=== PATIENT | male | born 1970 | race Caucasian/White ===

== ENCOUNTER 2019-06-02 18:18 | Emergency (ER) | payer OTHER ==
[2019-06-02] MEDS ORDERED: Diazepam TAB(*) 5 MG PO ONE (20:03)
[2019-06-02] MEDS ORDERED: Ketorolac INJ* 30 MG/ML 1 ML VIAL IM ONE (20:03)
[2019-06-02] MEDS ORDERED: Cyclobenzaprine TAB* 10 MG PO ONE (20:09)
--- NOTE | 2019-06-02 20:09 | ED ---
Back Pain - HPI Summary HPI Summary: Patient complains of left lower back pain after bending over today at work. Patient is ambulatory, describes pain as moderate. Denies urinary retention, bowel incontinence, pain in legs, any other pain, injury or symptoms. Medical history is none. - History of Current Complaint Chief Complaint: EDBackInjuryPain Stated Complaint: BACK INJURY PER PT Time Seen by Provider: 06/02/19 20:01 Hx Obtained From: Patient Onset/Duration: Sudden Onset, Lasting Hours Onset/Duration: Started Hours Ago Timing: Constant Severity Initially: Moderate Severity Currently: Moderate Pain Intensity: 8 Pain Scale Used: 0-10 Numeric Character: Aching, Throbbing Aggravating Symptom(s): Movement, Bending Alleviating Symptom(s): Rest, Position Associated Signs And Symptoms: Positive: Negative - Allergies/Home Medications Allergies/Adverse Reactions: Allergies Allergy/AdvReac Type Severity Reaction Status Date / Time No Known Allergies Allergy Verified 06/02/19 18:27 Home Medications: Home Medications Cyclobenzaprine TAB* [Flexeril 10 MG TAB*] 10 mg PO TID PRN 5 Days #15 tab 06/01 [Rx] PMH/Surg Hx/FS Hx/Imm Hx Endocrine/Hematology History: Denies: Hx Anticoagulant Therapy Cardiovascular History: Denies: Hx Pacemaker/ICD History: Denies: Hx Dialysis Sensory History: Denies: Hx Eye Prosthesis Opthamlomology History: Denies: Hx Legally Blind EENT History: Denies: Hx Deafness Infectious Disease History: No Infectious Disease History: Denies: Traveled Outside the [place] in Last 30 Days - Family History Known Family History: Positive: Non-Contributory - Social History Alcohol Use: Occasionally Hx Substance Use: No Hx Tobacco Use: No Review of Systems Constitutional: Negative Eyes: Negative ENT: Negative Cardiovascular: Negative Respiratory: Negative Gastrointestinal: Negative Genitourinary: Negative Musculoskeletal: Other Skin: Negative Neurological/Mental Status: Negative All Other Systems Reviewed And Are Negative: Yes Physical Exam - Summary Physical Exam Summary: Tenderness along the left paraspinal muscles of the lumbar spine. No erythema, ecchymosis, deformity, mass noted to back. No bony point tenderness. PMS intact distally bilateral lower extremities. Triage Information Reviewed: Yes Vital Signs On Initial Exam: Initial Vitals Temp Pulse Resp BP Pulse Ox 97.1 F 63 16 151/95 97 06/02/19 18:23 06/02/19 18:23 06/02/19 18:23 06/02/19 18:23 06/02/19 18:23 Vital Signs Reviewed: Yes Appearance: Positive: Well-Appearing Skin: Positive: Warm Head/Face: Positive: Normal Head/Face Inspection Eyes: Positive: Normal Neck: Positive: Supple Respiratory/Lung Sounds: Positive: Clear to Auscultation Cardiovascular: Positive: Normal Abdomen Description: Positive: Nontender Musculoskeletal: Positive: Normal Neurological: Positive: Normal Psychiatric: Positive: Normal AVPU Assessment: Alert - Jennifer Coma Scale Best Eye Response: 4 - Spontaneous Best Motor Response: 6 - Obeys Commands Best Verbal Response: 5 - Oriented Coma Scale Total: 15 Procedures - Sedation Patient Received Moderate/Deep Sedation with Procedure: No Diagnostics - Vital Signs Vital Signs Temp Pulse Resp BP Pulse Ox 06/02/19 18:23 97.1 F 63 16 151/95 97 - Laboratory Lab Statement: Any lab studies that have been ordered have been reviewed, and results considered in the medical decision making process. Back Pain Course/Dx - Course Course Of Treatment: Patient complains of left lower back pain after bending over today at work. Patient is ambulatory, describes pain as moderate. Denies urinary retention, bowel incontinence, pain in legs, any other pain, injury or symptoms. Medical history is none. Vital signs within normal limits. - Diagnoses Provider Diagnoses: Back spasm Discharge ED - Sign-Out/Discharge Documenting (check all that apply): Patient Departure - Discharge Plan Condition: Stable Disposition: HOME Prescriptions: Cyclobenzaprine TAB* [Flexeril 10 MG TAB*] 10 mg PO TID PRN 5 Days #15 tab PRN Reason: Spasms Patient Education Materials: Muscle Spasm (ED) Referrals: No Primary Care Phys,NOPCP [Primary Care Provider] - Additional Instructions: Take ibuprofen 600 mg every 6 hours for 2 days.. Take Flexeril as directed. Return to the ED for any new or worsening symptoms. - Billing Disposition and Condition Condition: STABLE Disposition: Home - Attestation Statements Provider Attestation: was available for consult. This patient was seen by the MARTIN. The patient was not presented to, seen by, or examined by me. Sesar Echavarria MD
[2019-06-02 21:23] VITALS: BP 139/58
== END 2019-06-02 21:23 | disposition home or self-care (01) ==
LOC: ED 18:18
DX: M62.830 Muscle spasm of back (principal)
CPT/HCPCS: 96372; 99282; A9270-GY; J1885